=== PATIENT | female | born 1975 | race Caucasian/White ===

== ENCOUNTER 2023-04-15 08:22 | Emergency (ER) | payer OTHER, SELFPAY ==
[2023-04-15 08:30] VITALS: BP 148/89; PULSE 83; RESP 20; TEMP 36.2; O2SAT 97
--- NOTE | 2023-04-15 08:54 | ED.GENADULT ---
HPI - General Adult General Chief complaint: Upper Respiratory Infection Stated complaint: Cough/Sore Throat Source: patient Mode of arrival: ambulatory Limitations: no limitations History of Present Illness HPI narrative: Patient presents for evaluation of sick symptoms for the past four days. Primary symptoms his sore throat. She also reports a cough but states that she believes her sore throat is what is triggering that. No fever, chills, nausea, vomiting, diarrhea, otalgia, shortness of breath. No recent sick contacts to her knowledge. She tried mucinex and robitussin for her symptoms. Symptoms are worse at night. She does not smoke. Related Data Home Medications Medication Instructions Recorded Confirmed amitriptyline 25 mg tablet mg 04/15/23 clonidine HCl 0.1 mg tablet mg 04/15/23 diltiazem HCl 180 mg mg PO 04/15/23 capsule,extended release 24 hr duloxetine 60 mg capsule,delayed mg PO 04/15/23 release leflunomide 20 mg tablet mg 04/15/23 levothyroxine 100 mcg tablet mcg 04/15/23 metformin 500 mg tablet mg 04/15/23 naproxen 500 mg tablet mg 04/15/23 omeprazole 20 mg capsule,delayed mg 04/15/23 release pravastatin 40 mg tablet mg 04/15/23 triamterene 37.5 tablet 04/15/23 mg-hydrochlorothiazide 25 mg tablet Allergies Allergy/AdvReac Type Severity Reaction Status Date / Time amoxicillin Allergy Unknown RASH Verified 05/04/17 18:30 ciprofloxacin Allergy Unknown RASH Verified 05/04/17 18:30 gabapentin Allergy Unknown HEADACHES Verified 05/04/17 18:30 Review of Systems Review of Systems: CONSTITUTIONAL: Denies fever, chills, or sweats. EYES: Denies visual changes, redness, or discharge. ENT: Reports sore throat. denies rhinorrhea, congestion, or otalgia. CARDIOVASCULAR: Denies chest pain, palpitations, or edema. RESPIRATORY: Reports cough. Denies shortness of breath. GASTROINTESTINAL: Denies abdominal pain, nausea, vomiting, or diarrhea. GENITOURINARY: Denies dysuria or hematuria. SKIN: Denies rash or itching. MUSCULOSKELETAL: Denies back pain, joint pain, or myalgia. NEUROLOGIC: Denies headache, numbness, dizziness, or weakness. PSYCHIATRIC: Denies anxiety or depression. PMFSH Past Medical History Medical History Hyperlipidemia Hypertension Thyroid disorder Surgical History Surgical History History of cholecystectomy Family History Family History Mother Family history non-contributory Social History Social History Smoking status: Never smoker Substance use: never Living arrangements: with family Gender identity (if verbalized by the patient): Female Sexual Orientation (if Verbalized by the Patient): Straight or Heterosexual Spiritual care concerns: No Exam Narrative: GENERAL: Well-appearing, well-nourished, and in no acute distress. HEAD: Normocephalic, atraumatic. EYES: PERRLA and EOMI. ENT: Nares clear, no rhinorrhea or epistaxis. Mucous membranes moist. Oropharynx without tonsillar hypertrophy exudate or other lesions. There is posterior pharyngeal erythema. bilateral TMs pearly valencia nonbulging NECK: Supple. No adenopathy or masses. No carotid bruits or JVD CHEST: Clear to auscultation. No respiratory distress. No wheezes rales or rhonchi HEART: Regular rate and rhythm. No murmur heard. Normal peripheral pulses. ABDOMEN: Soft, nontender, nondistended, normal active bowel sounds. EXTREMITIES: Normal range of motion. No edema. SKIN: Warm, dry, no rash. NEURO: No focal deficits. Alert and oriented x3. PSYCH: Normal mood and affect. Course Course Emergency Course: This is a 47-year-old female who presented for evaluation of sore throat. Rapid strep negative. Elected to proceed with antibiotic therap
== END 2023-04-15 09:02 | disposition home or self-care (01) ==
PROVIDERS: Emergency Provider Nurse Practitioner; PCP Internal Medicine
DX: J02.9 Acute pharyngitis, unspecified (principal); E78.5 Hyperlipidemia, unspecified; I10 Essential (primary) hypertension; Z79.899 Other long term (current) drug therapy; Z79.84 Long term (current) use of oral hypoglycemic drugs; Z85.850 Personal history of malignant neoplasm of thyroid
CPT/HCPCS: 87081; 87880; 99213; G0463